=== PATIENT | female | born 1940 | race Caucasian/White ===

== ENCOUNTER 2018-11-26 13:40 | Inpatient (IN) | payer MEDICARE, OTHER | END 2018-12-03 13:30 | LOC: ORTHO 4S 11-29 05:17 → ER 13:40 → ED HOLD 15:51 → ORTHO 4S 18:00 | DX: I63.9 Cerebral infarction, unspecified (principal); G93.41 Metabolic encephalopathy; I69.391 Dysphagia following cerebral infarction; F03.90 Unspecified dementia, unspecified severity, without behavioral disturbance, psychotic disturbance, mood disturbance, and anxiety ==

== ENCOUNTER 2020-05-16 09:05 | Emergency (ER) | payer MEDICARE, OTHER ==
[~2020-05-16] VITALS: Ht 154.9 cm; Wt 65.0 kg
[~2020-05-16 09:05] MED LIST: ACET-2119 PO; ATOR20TA66 PO; CHOL10002 PO; CLOP75TA35 PO; GABA-530 PO; MAGN400O6 PO; METF-950 PO; MULT-933 PO; PANT40TA4 PO; PER5325T PO; QUET100T33 PO; TRAM50TA2 PO
[2020-05-16] MEDS ORDERED: AMOX-419 PO (10:09)
[2020-05-16] MEDS ORDERED: amox tr/potassium clavulanate 875/125mg TAB PO ONE (10:10)
[2020-05-16] MEDS ORDERED: ondansetron 4mg rapidly disintigrating tab PO ONE (10:10)
[2020-05-16 10:49] VITALS: BP 159/62
== END 2020-05-16 11:07 | disposition home or self-care (01) ==
LOC: ER 09:06
DX: T17.820A Food in other parts of respiratory tract causing asphyxiation, initial encounter (principal); I10 Essential (primary) hypertension; E11.9 Type 2 diabetes mellitus without complications; M19.90 Unspecified osteoarthritis, unspecified site; Z86.73 Personal history of transient ischemic attack (TIA), and cerebral infarction without residual deficits; Z98.890 Other specified postprocedural states; Z79.899 Other long term (current) drug therapy; Y92.89 Other specified places as the place of occurrence of the external cause
CPT/HCPCS: 99283

== ENCOUNTER 2020-12-08 19:35 | Emergency (ER) | payer MEDICARE ==
[~2020-12-08] VITALS: Ht 154.9 cm; Wt 81.6 kg
[~2020-12-08 19:35] MED LIST changes: +CLOP75TA34 PO; -CLOP75TA35 PO; -PANT40TA4 PO; +PANT40TA54 PO
[2020-12-08 20:39] LABS: BASOPHILS % (AUTO) 0.5 % (0-1); EOSINOPHILS # (AUTO) 0.1 X10'3 (0-0.9); EOSINOPHILS % (AUTO) 0.8 % (0-6); HEMATOCRIT 32.3 % (35.0-45.0); HEMOGLOBIN 10.7 g/dl (12.0-16.0); LYMPHOCYTES # (AUTO) 0.8 X10'3 (1.1-4.8); MEAN CORPUSCULAR HGB CONC 33.1 g/dL (33.0-36.5); MEAN CORPUSCULAR VOLUME 90.6 FL (78-98); MEAN PLATELET VOLUME 9.6 FL (7.4-10.4); MONOCYTES # (AUTO) 0.5 X10'3 (0-0.9); MONOCYTES % (AUTO) 5.4 % (2-12); NEUTROPHILS # (AUTO) 8.2 X10'3 (1.8-7.7); NEUTROPHILS % (AUTO) 85.3 % (42-75); PARTIAL THROMBOPLASTIN TIME 25 SECONDS (22-32); PLATELET COUNT 215 X10'3 (140-440); RED BLOOD COUNT 3.56 X10'6 (4.20-5.60); RED CELL DISTRIBUTION WIDTH 14.4 % (11.5-14.5); WHITE BLOOD COUNT 9.6 X10'3 (4.5-11.0)
[2020-12-08 20:45] LABS: ALANINE AMINOTRANSFERASE 20 U/L (12-78); ALBUMIN 3.5 G/DL (3.4-5.0); ALBUMIN/GLOBULIN RATIO 0.9 (1.1-1.5); ALKALINE PHOSPHATASE 160 IU/L (46-116); ANION GAP 9 (8-16); ASPARTATE AMINO TRANSFERASE 16 U/L (10-37); BILIRUBIN,TOTAL 0.2 MG/DL (0.1-1.0); BLOOD UREA NITROGEN 30 MG/DL (7-18); BUN/CREATININE RATIO 22.1 (6.6-38.0); CALCIUM 9.5 MG/DL (8.5-10.1); CHLORIDE 100 MMOL/L (99-107); CREATININE 1.36 MG/DL (0.40-0.90); POTASSIUM 5.2 MMOL/L (3.5-5.1); SODIUM 134 MMOL/L (135-145); TOTAL CARBON DIOXIDE 24.6 MMOL/L (24-32); TOTAL PROTEIN 7.5 G/DL (6.4-8.2); TROPONIN I 0.06 NG/ML (0.0-0.05); eGFR 37 ML/MIN
[2020-12-08 20:47] LABS: GLUCOSE 471 MG/DL (70-104)
[2020-12-08] MEDS ORDERED: normal saline 1000ML IV soln IVB ONE (21:25)
[2020-12-08] MEDS ORDERED: insulin regular, human 10 units/0.1 ml syringe IV ONE (21:25)
[2020-12-08] MEDS ORDERED: CELE-193 PO (21:47)
[2020-12-08] MEDS ORDERED: QUET25TA PO ×2 (21:47)
[2020-12-08] MEDS ORDERED: MELA3TAB70 PO (21:47)
[2020-12-08] MEDS ORDERED: BISA-78 PO (21:47)
[2020-12-08] MEDS ORDERED: PRAV40TA3 PO (21:47)
[2020-12-08 22:16] VITALS: BP 112/94
== END 2020-12-08 23:25 | disposition home or self-care (01) ==
LOC: ER 19:36
DX: S09.90XA Unspecified injury of head, initial encounter (principal); R77.8 Other specified abnormalities of plasma proteins; E11.65 Type 2 diabetes mellitus with hyperglycemia; F03.90 Unspecified dementia, unspecified severity, without behavioral disturbance, psychotic disturbance, mood disturbance, and anxiety; I10 Essential (primary) hypertension; E11.9 Type 2 diabetes mellitus without complications; M19.90 Unspecified osteoarthritis, unspecified site; Z86.73 Personal history of transient ischemic attack (TIA), and cerebral infarction without residual deficits; Z79.899 Other long term (current) drug therapy; W05.0XXA Fall from non-moving wheelchair, initial encounter; Z91.81 History of falling; Y93.89 Activity, other specified; Y92.89 Other specified places as the place of occurrence of the external cause; Y99.8 Other external cause status
CPT/HCPCS: 36415; 70450; 71045; 72125; 80053; 84484; 85025; 85610; 85730; 96361; 96374; 99285; J1815; J7030; 93005